=== PATIENT | male | born 1955 | race African-American/Black ===

== ENCOUNTER 2024-09-25 10:02 | Outpatient (CLI) | payer MEDICARE | END 2024-09-25 10:03 | disposition home or self-care (01) | LOC: CJX 10:02 | PROVIDERS: ATTEND Orthopaedic Surgery | DX: M43.16 Spondylolisthesis, lumbar region (principal); M47.26 Other spondylosis with radiculopathy, lumbar region; M51.369 Other intervertebral disc degeneration, lumbar region without mention of lumbar back pain or lower extremity pain; M48.061 Spinal stenosis, lumbar region without neurogenic claudication; M48.07 Spinal stenosis, lumbosacral region; M51.17 Intervertebral disc disorders with radiculopathy, lumbosacral region | CPT/HCPCS: 72148 ==